=== PATIENT | female | born 1955 | race Caucasian/White ===

== ENCOUNTER → 2016-11-22 | Day surgery (SDC) | payer OTHER ==
[~2016-11-22] VITALS: Ht 162.6 cm; Wt 65.8 kg
[~2016-11-22] MED LIST: ALENDRONATE SOD70 M2 PO; SIMVASTATIN20 M2 PO
--- NOTE | 2016-11-22 13:24 | Operative Report ---
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 Estimated Blood Loss: scant Surgeon/Foreign Language Instructor: MITUL PRADO MD Anesthesia: local monitored anesthesi Monitors: Blood pressure EKG electrodes pulse oximeter IV Fluids: 750 crystalloid Implants: N Urine Output: No catheterization, not measured Drains: None Specimens: 1 ECC 2 EMC Microbiology: N Tourniquet: N Complications: NONE Condition: GOOD Operative Indication: Patient with recurrent postmenopausal bleeding prior office endometrial biopsy was benign findings, now with return of bleeding Operative/Procedure Note Note: Patient was brought to the operating room placed on the OR table in dorsal supine position. Timeout was discussed by the team and agreed upon. Patient has a penicillin allergy but no antibiotic therapy is required for this procedure. Patient was given IV sedation. After adequate IV sedation, patient was placed in dorsal lithotomy position using candycane stirrups and pneumatic compression boots her lower extremities. Patient was prepped and draped in the usual sterile fashion Exam under anesthesia showed a normal size uterus, and the adnexa were nonpalpable. Speculum placed in the vagina, and the cervix was visualized. Single-tooth tenaculum placed on the anterior lip of the cervix. Endocervical curettage performed. Specimen was submitted separately. Cervix carefully dilated to #6 Hegar dilator. Hysteroscope was introduced to the endocervical canal, into the uterine cavity with direct visualization, using Hespan distention media. The endometrial cavity showed fundal septum and both tubal ostia seen. A small anterior fundal submucosal fibroid about 1 cm in diameter was noted. Also on the low segment anterior uterine wall a patch of dense pink tissue was noted. No evidence of polyp formation. Hysteroscope was removed from the uterine cavity, and the uterine cavity was then aggressively curetted and finally explored with stone forceps. Small to moderate amount of tissue was removed from the uterine cavity. After it seemed that there had been adequate sampling of the uterine cavity, the hysteroscope was then reintroduced into the uterine cavity. Reinspection of the uterine wall showed no evidence of perforation, fundal septum remained intact. Small fundal anterior wall myoma remained unchanged, but no residual significant tissue within the uterine cavity.. Uterine cavity showed adequate sampling. Good hemostasis was noted at this time. The speculum and all instruments were removed from the vagina. Good hemostasis continued. Sponge, instrument, and Telfa counts were correct 2. Vaginal exam showed nothing retained in the vaginal canal. Patient was returned to the dorsal supine position, awakened from anesthesia and taken to recovery room good condition. Specimens to the lab: 1 ECC, 2 EMC Mitul Prado ending dictation Findings: Exam under anesthesia showed a normal-size uterus, adnexa nonpalpable. Hysteroscopic review of the uterine cavity revealed a small fundal septum, both tubal ostia were seen. A 1 cm submucosal myoma extended part way into the uterine cavity on the anterior uterine wall near the fundus. There was also a pink patch of tissue on the anterior uterine wall the low uterine segment. Aggressive curettage adequate sample the uterine cavity and remove the pink patch of tissue on the anterior uterine wall and the low segment. Completion the procedure no evidence of injury to the uterine wall and the fibroid remained intact. Completion the procedure there was good hemostasis, sponge, instrument, Telfa counts were correct 2 Discharge Disposition: Same Day Admissions CC: MANUELA BELTRAN,MITUL Fernando
== END ==
LOC: STS 11-16 07:00 → EDSTATUS 11-16 07:00 → STS 03:51
DX: D25.0 Submucous leiomyoma of uterus (principal); I10 Essential (primary) hypertension; E78.5 Hyperlipidemia, unspecified; R01.1 Cardiac murmur, unspecified
CPT/HCPCS: J2250